=== PATIENT | female | born 1995 | race Caucasian/White ===

== ENCOUNTER 2018-02-17 09:17 | Emergency (ER) | payer OTHER, BC ==
[2018-02-17 10:14] VITALS: BP 118/60
--- NOTE | 2018-02-17 10:39 | UC ---
Throat Pain/Nasal Cezar HPI - HPI Summary HPI Summary: 22-year-old woman coming in to the clinic today with a complaint of runny nose and sinus pressure. The symptoms are worse over the last 3-4 days but she does get recurrent sinus infections. She is not a smoker. The rhinorrhea is green. There is a sore throat no wheezing. No shortness of breath. - History of Current Complaint Chief Complaint: UCRespiratory Stated Complaint: SINUS SORE THROAT COUGH Time Seen by Provider: 02/17/18 10:29 Hx Last Menstrual Period: 02/15 Pain Intensity: 4 - Allergies/Home Medications Allergies/Adverse Reactions: Allergies Allergy/AdvReac Type Severity Reaction Status Date / Time amoxicillin Allergy Rash Verified 02/17/18 10:11 Penicillins Allergy Rash Verified 02/17/18 10:11 Home Medications: Home Medications D-Methorphan/PE/Acetaminophen [Vicks Dayquil Cold & Flu] 2 cap PO ONCE PRN 02/17 [History Confirmed 02/17/18] Dm/Acetaminophen/Doxylamine [Vicks Nyquil Cold & Flu N 15-6.25-325 mg] 2 cap PO ONCE PRN 02/17/18 [History Confirmed 02/17/18] Pseudoephedrine TAB* [Sudafed TAB*] 30 mg PO ONCE PRN 02/17/18 [History Confirmed 02/17/18] PMH/Surg Hx/FS Hx/Imm Hx Other Respiratory History: RECURRENT SINUSITIS - Surgical History Surgical History: None - Family History Known Family History: Positive: Diabetes Negative: Cardiac Disease - Social History Occupation: Student Alcohol Use: Occasionally Substance Use Type: None Smoking Status (MU): Never Smoked Tobacco Have You Smoked in the Last Year: No Review of Systems Constitutional: Negative Skin: Negative Eyes: Negative ENT: Sore Throat, Nasal Discharge, Sinus Congestion, Sinus Pain/Tenderness Respiratory: Negative Cardiovascular: Negative Gastrointestinal: Negative Motor: Negative Neurovascular: Negative Musculoskeletal: Negative Neurological: Negative Psychological: Negative Is Patient Immunocompromised?: No All Other Systems Reviewed And Are Negative: Yes Physical Exam Triage Information Reviewed: Yes Appearance: Well-Appearing, No Pain Distress, Well-Nourished Vital Signs: Initial Vital Signs Temp 98.5 F 02/17/18 10:03 Pulse 83 02/17/18 10:03 Resp 18 02/17/18 10:03 BP 118/60 02/17/18 10:03 Pulse Ox 100 02/17/18 10:03 Vital Signs Reviewed: Yes Eye Exam: Normal Eyes: Positive: Conjunctiva Clear ENT: Positive: Pharyngeal erythema, Nasal congestion, Nasal drainage, TMs normal , Sinus tenderness Neck exam: Normal Neck: Positive: Supple Respiratory Exam: Normal Respiratory: Positive: Lungs clear, Normal breath sounds, No respiratory distress Cardiovascular: Positive: RRR Musculoskeletal Exam: Normal Musculoskeletal: Positive: Strength Intact, ROM Intact, No Edema Neurological Exam: Normal Neurological: Positive: Alert Psychological Exam: Normal Skin Exam: Normal Throat Pain/Nasal Course/Dx - Course Course Of Treatment: DISCUSSED VIRAL VERSES BACTERIAL INFECTION AND THE ROLE OF ANTIBIOTICS. THE PATIENT WISHES TO BE ON ANTIBIOTICS AT THIS TIME. - Differential Dx/Diagnosis Provider Diagnoses: SINUSITIS Discharge - Sign-Out/Discharge Documenting (check all that apply): Patient Departure All imaging exams completed and their final reports reviewed: No Studies - Discharge Plan Condition: Stable Disposition: HOME Prescriptions: Azithromyxin YUVAL (NF) [Z-Yuval (Zithromax) 250 mg tabs #6] 2 tab PO .TODAY, THEN 1 DAILY #6 tab Patient Education Materials: Sinusitis (ED) Referrals: [facility] [Outside] [facility] [Outside] Additional Instructions: FOLLOW UP WITH YOUR DOCTOR IF NOT COMPLETELY IMPROVED. GET RECHECKED FOR ANY WORSENING OF YOUR CONDITION OR QUESTIONS OR CONCERNS. - Billing Disposition and Condition Condition: STABLE Disposition: Home
== END 2018-02-17 10:51 | disposition home or self-care (01) ==
LOC: UCCORT 09:17
DX: J32.9 Chronic sinusitis, unspecified (principal); Z88.0 Allergy status to penicillin
CPT/HCPCS: 99202; G0463